=== PATIENT | female | born 1945 | race Caucasian/White ===

== ENCOUNTER 2023-06-25 10:26 | Observation (INO) | payer MEDICARE, OTHER ==
[~2023-06-25] VITALS: Ht 172.7 cm; Wt 81.7 kg
[2023-06-25 11:06] LABS: BASOPHILS ABSOLUTE AUTO 0.01 K/mm3 (0.00-0.23); BASOPHILS PERCENT AUTO 0 % (0-2); EOSINOPHILS ABSOLUTE AUTO 0.03 K/mm3 (0.00-0.68); EOSINOPHILS PERCENT AUTO 1 % (0-6); Hematocrit 43.4 % (33.0-51.0); Hemoglobin 15.1 g/dL (11.5-16.0); IMMATURE GRAN PERCENT AUTO 0 % (0-1); LYMPHOCYTES PERCENT AUTO 69 % (21-46); MONOCYTES ABSOLUTE AUTO 0.04 K/mm3 (0.16-1.47); MONOCYTES PERCENT AUTO 1 % (4-13); Mean Corpuscular HGB 32.9 pg (26.0-34.0); Mean Corpuscular HGB Conc 34.8 g/dL (31.5-36.5); Mean Corpuscular Volume 95 fL (80-100); Mean Platelet Volume 10.6 fL (9.1-12.4); NEUTROPHILS ABSOLUTE AUTO 0.82 K/mm3 (1.96-9.15); NEUTROPHILS PERCENT AUTO 28 % (41-73); Platelet Count 184 K/mm3 (150-400); RDW Coefficient Variation 14.6 % (11.7-14.2); RDW Standard Deviation 50.7 fL (35.1-46.3); Red Blood Cell Count 4.59 M/mm3 (3.80-5.20)
[2023-06-25] MEDS ORDERED: ATORVASTATIN CA20 MG PO (11:18)
[2023-06-25] MEDS ORDERED: Lisinopril-Hct1 EAC4 PO (11:19)
[2023-06-25] MEDS ORDERED: DILTIAZEM 24HR360 MG PO (11:19)
[2023-06-25] MEDS ORDERED: OMEP20ER PO (11:20)
[2023-06-25] MEDS ORDERED: Toprol Xl50 MG PO (11:20)
[2023-06-25] MEDS ORDERED: TRAZ50 PO (11:21)
[2023-06-25] MEDS ORDERED: ELIQUIS5 M3 PO (11:21)
[2023-06-25 11:25] LABS: Albumin, Blood 3.7 g/dL (3.4-5.0); Albumin/Globulin Ratio 1.1 (0.8-1.8); Bilirubin, Total 0.6 mg/dL (0.1-1.0); Bun/Creatinine Ratio 25.8 (12.0-20.0); Calcium, Blood 9.4 mg/dL (8.5-10.1); Creatinine, Blood 0.7 mg/dL (0.40-1.00); Globulin, Blood 3.3 g/dL (2.2-4.0); Potassium, Blood 3.2 mmol/L (3.5-5.5)
[2023-06-25] MEDS ORDERED: levETIRAcetam 500 MG in NS 100 ML IV SCH (16:00)
[2023-06-25] MEDS ORDERED: FentaNYL Citrate 50 MCG/ML 2 ML Injection IV PRN (16:25)
[2023-06-25] MEDS ORDERED: TraZODone HCl 50 MG Tab PO SCH (16:25)
[2023-06-25] MEDS ORDERED: LORazepam 2 MG/ML 1ML Injection IV ONE (17:00)
[2023-06-25] MEDS ORDERED: LORazepam 2 MG/ML 1ML Injection IV PRN (17:00)
[2023-06-25] MEDS ORDERED: Metoprolol Succinate 50 MG TABCR PO SCH (17:00)
[2023-06-25 17:52] VITALS: BP 156/102
--- NOTE | 2023-06-25 18:16 | NUR ---
PATIENT IS IN BED. NODS HER HEAD YES AND NO, APPEARS TO ANSWER INCORRECTLY AT TIMES AND TRIES TO EXPLAIN BUT UNABLE TO SPEAK. 1PA TO BSC WITH GAIT BELT. BED ALARM ON. WILL CONTINUE TO MONITOR
[2023-06-25 19:44] VITALS: BP 111/78
[2023-06-25] MEDS ORDERED: Apixaban 5 MG Tab PO SCH (21:00)
[2023-06-25] MEDS ORDERED: Atorvastatin 10 MG Tab PO SCH (21:00)
[2023-06-25] MEDS ORDERED: NS 250 ML IV PRN (21:50)
[2023-06-26 03:59] VITALS: BP 97/53
--- NOTE | 2023-06-26 04:33 | NUR ---
SHIFT SUMMARY 78 YR F ADMITTED ON 06/25/23. DNR. NO ACUTE CHANGES THIS SHIFT. NO EVIDENCE OF SEIZURE ACTIVITY THIS SHIFT. PT IS IMPUILSIVE TO ATTEMPT TO GET OUT OF BED WHEN SHE NEEDS TO USE THE BEDSIDE URINAL. BED ALARM IS ON PT REQUIRES ASSISTANCE. SHE SLEPT FOR FIRST PART OF THE SHIFT BUT THEN BECAME RESTLESS AND WAS PULLING AT HER IV. SHE WAS GIVEN 2 MG ATIVAN PER EMAR AND WAS ABLE TO FALL BACK ASLEEP. HER ONLY VERBAL RESPONSE IS YES OR NO BUT MOSTLY SHE SHAKES HER HEAD IN ANSWER OF QUESTIONS.
[2023-06-26] MEDS ORDERED: Omeprazole 20 MG CapCR PO SCH (06:00)
[2023-06-26 07:51] VITALS: BP 111/75
[2023-06-26] MEDS ORDERED: Potassium Chloride 20 MEQ TabCR PO ONE (08:00)
[2023-06-26] MEDS ORDERED: Lisinopril 10 MG Tab PO SCH (09:00)
[2023-06-26] MEDS ORDERED: LevETIRAcetam 500 MG Tab PO SCH (09:00)
[2023-06-26] MEDS ORDERED: HydroCHLOROthiazide 25 mg Tab PO SCH (09:00)
--- NOTE | 2023-06-26 11:52 | NUR ---
PT DISCHARGE THE PT IS TO BE DC'D BACK TO [facility]. THE PT IS AWAITING TRANPORTATION AT THIS TIME. REPORT WAS CALLED TO THE ACCEPTING RN AT [facility]
[2023-06-26] MEDS ORDERED: LEVE500 PO (12:07)
--- NOTE | 2023-06-26 12:41 | NUR ---
PT TRANSFERED THE PT WAS TRANSFERED VIA ANTOINE BACK TO [facility]
== END 2023-06-26 12:30 ==
LOC: ER 10:26 → MEDS 10:27
PROVIDERS: Emergency Medicine; ADMIT Internal Medicine
DX: R56.9 Unspecified convulsions (principal); R41.0 Disorientation, unspecified; E87.6 Hypokalemia; Z51.5 Encounter for palliative care; Z79.01 Long term (current) use of anticoagulants; Z88.5 Allergy status to narcotic agent; Z79.899 Other long term (current) drug therapy
CPT/HCPCS: 70450; 72125; 73502; 80053; 84146; 85025; 96365; 96374; 96375; 96376; 99285-25; A9270; G0378; J1953; J2060; J7050

== ENCOUNTER 2023-11-21 23:15 | Inpatient (IN) | payer MEDICARE, OTHER ==
[~2023-11-21] VITALS: Ht 170.2 cm; Wt 77.2 kg
[~2023-11-21 23:15] MED LIST: ATORVASTATIN CA20 MG PO; DILTIAZEM 24HR360 MG PO; ELIQUIS5 M3 PO; KEPPRA100 MG/1 M PO; Lisinopril-Hct1 EAC4 PO; OMEP20ER PO; TRAZ50 PO; Toprol Xl50 MG PO
[2023-11-21 23:43] LABS: Hematocrit 34.7 % (33.0-51.0); Mean Corpuscular HGB 35.1 pg (26.0-34.0); Mean Corpuscular HGB Conc 34.6 g/dL (31.5-36.5); Mean Corpuscular Volume 102 fL (80-100); Mean Platelet Volume 9.8 fL (9.1-12.4); Platelet Count 154 K/mm3 (150-400); RDW Coefficient Variation 14.6 % (11.7-14.2); Red Blood Cell Count 3.42 M/mm3 (3.80-5.20)
[2023-11-21 23:49] LABS: White Blood Cell Count 0.95 K/mm3 (4.00-11.30)
[2023-11-21 23:55] LABS: Albumin, Blood 2.8 g/dL (3.4-5.0); Albumin/Globulin Ratio 0.8 (0.8-1.8); Bilirubin, Total 0.7 mg/dL (0.1-1.0); Bun/Creatinine Ratio 33.6 (12.0-20.0); Calcium, Blood 8.6 mg/dL (8.5-10.1); Creatinine, Blood 0.66 mg/dL (0.40-1.00); Globulin, Blood 3.3 g/dL (2.2-4.0); Potassium, Blood 3.3 mmol/L (3.5-5.5); Total Protein, Blood 6.1 g/dL (6.4-8.2)
[2023-11-22 00:23] LABS: BAND PERCENT MAN 8 % (0-8); BASOPHILS PERCENT MAN 0 % (0-2); EOSINOPHILS ABSOLUTE MAN 0.03 K/mm3 (0.00-0.68); EOSINOPHILS PERCENT MAN 4 % (0-6); LYMPHOCYTES % ATYPICAL MANUAL 8 % (0-0); LYMPHOCYTES ABSOLUTE MAN 0.45 K/mm3 (0.84-5.20); LYMPHOCYTES PERCENT MAN 40 % (21-46); MONOCYTES ABSOLUTE MAN 0.03 K/mm3 (0.16-1.47); MONOCYTES PERCENT MAN 4 % (4-13); NEUTROPHILS ABSOLUTE MAN 0.41 K/mm3 (1.96-9.15); SEG NEUTROPHILS PERCENT MAN 36 % (41-73); TOTAL CELLS COUNTED 50
[2023-11-22] MEDS ORDERED: TraZODone HCl 50 MG Tab PO ONE (01:00)
[2023-11-22 02:25] LABS: Source, Urine Straight Cath
[2023-11-22 02:40] LABS: Bilirubin, Urine Neg (Neg); Blood, Urine 1+ (Neg); Glucose Qualitative, Urine Neg (Neg); Ketones, Urine Neg (Neg); Leukocyte Esterase, Urine 1+ (Neg); Nitrite, Urine Neg (Neg); Protein, Urine 2+ (Neg); Specific Gravity, Urine 1.025 (1.003-1.022); Urobilinogen, Urine 1+ (Normal)
[2023-11-22 02:51] LABS: Appearance, Urine Hazy (Clear); Color, Urine Yellow (P-Yellow)
[2023-11-22 02:52] LABS: Amorphous Mod (0-Heavy); Bacteria Mod /hpf; Mucus Mod (0-Heavy); Red Blood Cells, Urine 0-2 /hpf (0-2); Squamous Epithelial Cells Many /hpf (Few)
[2023-11-22 03:44] LABS: Influenza A, PCR NEGATIVE (NEGATIVE); Influenza B, PCR NEGATIVE (NEGATIVE); Resp Syncytial Virus, PCR NEGATIVE (NEGATIVE); SARS-Cov-2 (COVID-19) PCR, MMC NEGATIVE (NEGATIVE)
[2023-11-22 03:57] LABS: Hematocrit 32.2 % (33.0-51.0); Hemoglobin 11.1 g/dL (11.5-16.0); Mean Corpuscular HGB 35.1 pg (26.0-34.0); Mean Corpuscular HGB Conc 34.5 g/dL (31.5-36.5); Mean Corpuscular Volume 102 fL (80-100); Mean Platelet Volume 9.3 fL (9.1-12.4); Platelet Count 131 K/mm3 (150-400); RDW Coefficient Variation 14.4 % (11.7-14.2); Red Blood Cell Count 3.16 M/mm3 (3.80-5.20)
[2023-11-22 04:18] VITALS: BP 116/79
[2023-11-22 04:35] LABS: BASOPHILS PERCENT AUTO 0 % (0-2); EOSINOPHILS ABSOLUTE AUTO 0.04 K/mm3 (0.00-0.68); EOSINOPHILS PERCENT AUTO 4 % (0-6); IMMATURE GRAN ABSOLUTE AUTO 0.01 K/mm3 (0.00-0.10); IMMATURE GRAN PERCENT AUTO 1 % (0-1); LYMPHOCYTES ABSOLUTE AUTO 0.49 K/mm3 (0.84-5.20); LYMPHOCYTES PERCENT AUTO 54 % (21-46); MONOCYTES ABSOLUTE AUTO 0.05 K/mm3 (0.16-1.47); MONOCYTES PERCENT AUTO 6 % (4-13); NEUTROPHILS ABSOLUTE AUTO 0.32 K/mm3 (1.96-9.15); NEUTROPHILS PERCENT AUTO 35 % (41-73)
[2023-11-22 04:36] LABS: White Blood Cell Count 0.91 K/mm3 (4.00-11.30)
[2023-11-22 05:44] LABS: Albumin, Blood 2.8 g/dL (3.4-5.0); Albumin/Globulin Ratio 0.9 (0.8-1.8); Bilirubin, Total 0.7 mg/dL (0.1-1.0); Bun/Creatinine Ratio 30.6 (12.0-20.0); Calcium, Blood 8.3 mg/dL (8.5-10.1); Creatinine, Blood 0.62 mg/dL (0.40-1.00); Globulin, Blood 3.1 g/dL (2.2-4.0); Total Protein, Blood 5.9 g/dL (6.4-8.2)
[2023-11-22 05:46] LABS: BASOPHILS PERCENT MAN 0 % (0-2); EOSINOPHILS ABSOLUTE MAN 0.07 K/mm3 (0.00-0.68); EOSINOPHILS PERCENT MAN 8 % (0-6); LYMPHOCYTES % ATYPICAL MANUAL 4 % (0-0); LYMPHOCYTES ABSOLUTE MAN 0.43 K/mm3 (0.84-5.20); LYMPHOCYTES PERCENT MAN 44 % (21-46); MONOCYTES PERCENT MAN 0 % (4-13); SEG NEUTROPHILS PERCENT MAN 44 % (41-73); TOTAL CELLS COUNTED 25
[2023-11-22] MEDS ORDERED: Potassium Chl 20MEQ/Water100ML 100 ML IV SCH (06:00)
--- NOTE | 2023-11-22 06:33 | NUR ---
Patient arrived to room from ED around 0400. Patient nonverbal but alert, following commands but also impulsively attempting to get out of bed independently for bathroom needs. Tolerating room air appropriately, VSS, using bedside commode with one person assist and FWW. IV potassium attached to patient, infusing appropriately.
[2023-11-22] MEDS ORDERED: NS 250 ML IV PRN (06:45)
[2023-11-22 07:42] VITALS: BP 104/83
[2023-11-22] MEDS ORDERED: LevETIRAcetam 500 MG Tab PO SCH (09:00)
[2023-11-22] MEDS ORDERED: Apixaban 5 MG Tab PO SCH ×2 (09:00)
[2023-11-22] MEDS ORDERED: Potassium Chloride 20 MEQ TabCR PO ONE (10:00)
[2023-11-22] MEDS ORDERED: MELA3 PO (10:24)
[2023-11-22] MEDS ORDERED: LAMO25 PO (10:27)
[2023-11-22] MEDS ORDERED: BISA10S PR (10:30)
[2023-11-22] MEDS ORDERED: ACET325 PO (10:30)
[2023-11-22] MEDS ORDERED: DULCOLAX400 MG/5 M PO (10:32)
[2023-11-22] MEDS ORDERED: LEVFLO500 PO (10:33)
[2023-11-22 15:06] VITALS: BP 106/69
[2023-11-22] MEDS ORDERED: Metoprolol Succinate 50 MG TABCR PO SCH (17:23)
[2023-11-22] MEDS ORDERED: Magnesium Hydroxide Conc 10 ML UDC PO PRN (17:30)
[2023-11-22] MEDS ORDERED: Bisacodyl 10 MG Supp PR PRN (17:30)
[2023-11-22] MEDS ORDERED: Acetaminophen 325 MG TABLET PO PRN (17:30)
--- NOTE | 2023-11-22 17:38 | NUR ---
SUMMARY- UNKNOWN ORIENTATION DUE TO PT'S INABILITY TO VERBALLY COMMUNICATE. X1 ASSIST TO THE BSC. PT IS URINATING SMALL AMOUNTS FREQUENTLY THIS SHIFT. PT ON RA. NO COMPLAINTS OF PAIN THIS SHIFT.
[2023-11-22 19:27] VITALS: BP 127/94
[2023-11-22] MEDS ORDERED: LamoTRIgine 25 MG Tab PO SCH (21:00)
[2023-11-22] MEDS ORDERED: Melatonin 3 MG Tab PO SCH (21:00)
[2023-11-22] MEDS ORDERED: [UNRECOGNIZED DRUG - OTHER] PO (22:05)
--- NOTE | 2023-11-23 03:47 | NUR ---
PUBLIC HEALTH PHYSICIAN SUMMARY VSS. RASH REMAINS -SEE PREVIOUS DOCUMENTATION IN CHART. INTERMITTENT RESTLESSNESS AND WORD GUNNER NOTED. ENCOURAGED TO USE CALL LIGHT WHEN NEEDING TO GET OOB TO COMMODE, NOT COMPLIANT, BED ALARM ON. HAS BEEN RESTING QUIETLY OTHERWISE WITH NO NOTED DISTRESS. MED [employer] IN THE 'S. REMAINS ON NEUTROPENIC PRECAUTIONS. ABLE TO REPOSITION SELF IN BED WITHOUT ASSISTANCE. CALL LIGHT IN REACH, RAILS UP X 2 AND BED IN LOW POSITION FOR SAFETY. WILL CONTINUE TO MONITOR
[2023-11-23 05:43] VITALS: BP 125/85
[2023-11-23 06:00] LABS: Hematocrit 32.3 % (33.0-51.0); Mean Corpuscular HGB 34.9 pg (26.0-34.0); Mean Corpuscular HGB Conc 34.1 g/dL (31.5-36.5); Mean Corpuscular Volume 103 fL (80-100); Mean Platelet Volume 9.5 fL (9.1-12.4); Platelet Count 137 K/mm3 (150-400); RDW Coefficient Variation 14.8 % (11.7-14.2); Red Blood Cell Count 3.15 M/mm3 (3.80-5.20); White Blood Cell Count 1.19 K/mm3 (4.00-11.30)
[2023-11-23] MEDS ORDERED: Omeprazole 20 MG CapCR PO SCH (06:00)
[2023-11-23 06:31] LABS: Albumin, Blood 2.5 g/dL (3.4-5.0); Albumin/Globulin Ratio 0.9 (0.8-1.8); Bilirubin, Total 0.5 mg/dL (0.1-1.0); Bun/Creatinine Ratio 28.7 (12.0-20.0); Calcium, Blood 8.7 mg/dL (8.5-10.1); Creatinine, Blood 0.63 mg/dL (0.40-1.00); Globulin, Blood 2.8 g/dL (2.2-4.0); Potassium, Blood 3.5 mmol/L (3.5-5.5); Total Protein, Blood 5.3 g/dL (6.4-8.2)
[2023-11-23 07:00] LABS: BASOPHILS PERCENT MAN 0 % (0-2); EOSINOPHILS ABSOLUTE MAN 0.07 K/mm3 (0.00-0.68); EOSINOPHILS PERCENT MAN 6 % (0-6); LYMPHOCYTES % ATYPICAL MANUAL 12 % (0-0); LYMPHOCYTES PERCENT MAN 56 % (21-46); MONOCYTES PERCENT MAN 0 % (4-13); SEG NEUTROPHILS PERCENT MAN 26 % (41-73); TOTAL CELLS COUNTED 50
[2023-11-23 07:44] VITALS: BP 180/86
[2023-11-23] MEDS ORDERED: Atorvastatin 10 MG Tab PO SCH (09:00)
[2023-11-23] MEDS ORDERED: HydroCHLOROthiazide 25 mg Tab PO SCH (09:00)
[2023-11-23] MEDS ORDERED: Lisinopril 10 MG Tab PO SCH (09:00)
[2023-11-23] MEDS ORDERED: Loratadine 10 MG Tab PO SCH (09:00)
[2023-11-23] MEDS ORDERED: LORA10ER PO (13:46)
--- NOTE | 2023-11-23 14:18 | NUR ---
NEED TO REVIEW CARE PLAN AND FUTURE GOALS OF CARE. UNABLE TO REACH EITHER OF PT'S SONS, LAURA GRANDE AND CK GRANDE [facility] ARUN RICCI. WAS ABLE TO REACH PT'S NIECE, MOLLY GONZALEZ BY PHONE. MOLLY WILL BE REACHING OUT TO PT'S SONS VIA [employer] MESSENGER. MOLLY STATES SHE WILL RELAY A MESSAGE TO THEM TO CALL PALLIATIVE CARE FOR FURTHER CONVERSATION. THIS PC RN PROVIDED UPDATE TO DR. BECKFORD. PER RESIDENT CARE TEAM, PT IS MEDICALLY STABLE FOR D/C BACK TO [facility]. RECOMMENDATION IS FOR D/C TO LTC WITH FOLLOW UP WITH PCP FOR FURTHER REVIEW OF CARE GOALS. RECOMMENDATION AT THIS TIME IS FOR
--- NOTE | 2023-11-23 15:21 | NUR ---
REPORT- THIS RN CALLED AND GAVE REPORT TO SUNIL VERA NURSE. ALL QUESTIONS ANSWERED.
--- NOTE | 2023-11-23 16:41 | NUR ---
[id number] PT LEFT VIA WC AND TRANSPORT IN STABLE CONDITION WITH ALL BELONGINGS AND DC PAPERWORK PACKET.
== END 2023-11-23 15:34 | DRG 607 ==
LOC: ER 23:15 → MEDS 23:16
PROVIDERS: Emergency Medicine; Family Medicine; ADMIT Internal Medicine
DX: L27.0 Generalized skin eruption due to drugs and medicaments taken internally (principal); N39.0 Urinary tract infection, site not specified; D61.818 Other pancytopenia; R65.10 Systemic inflammatory response syndrome (SIRS) of non-infectious origin without acute organ dysfunction; I48.20 Chronic atrial fibrillation, unspecified; Z51.5 Encounter for palliative care; Z66 Do not resuscitate; K21.9 Gastro-esophageal reflux disease without esophagitis; E78.5 Hyperlipidemia, unspecified; E87.6 Hypokalemia; D70.9 Neutropenia, unspecified; R50.81 Fever presenting with conditions classified elsewhere; T36.8X5A Adverse effect of other systemic antibiotics, initial encounter; G40.909 Epilepsy, unspecified, not intractable, without status epilepticus; I11.0 Hypertensive heart disease with heart failure; I50.9 Heart failure, unspecified; Z86.73 Personal history of transient ischemic attack (TIA), and cerebral infarction without residual deficits; Z88.5 Allergy status to narcotic agent; Z79.899 Other long term (current) drug therapy; Z79.01 Long term (current) use of anticoagulants
CPT/HCPCS: 0241U; 36415; 71046; 74177; 80053; 81001; 83605; 83735; 85025; 87086; 96365; 96366; 97110; 97162; 97165; 97535; 99285-25; A9270; G0378; J3480; Q9967